=== PATIENT | female | born 1990 | race Caucasian/White ===

== ENCOUNTER 2018-05-18 09:50 | Day surgery (SDC) | payer OTHER ==
[2018-05-17 15:39] VITALS: BMI 26.5
[2018-05-18] MEDS ORDERED: Lidocaine 1% (PF) 30 ML VIAL ONE (10:46)
[2018-05-18] MEDS ORDERED: Bupivacaine 0.25% HCL 30 ML VIAL ONE (10:46)
[2018-05-18] MEDS ORDERED: ceFAZolin Sodium 2 GM/100 ML BAG ONE (11:13)
[2018-05-18 11:16] LABS: BHCG - Serum Negative (NEGATIVE); Pregs Control Background? CLEAR/WHITE (CLR/WHITE); Pregs Control Bar Appear? YES (CONTROL BAR)
[2018-05-18] MEDS ORDERED: Midazolam HCl 2 mg/2 ml Vial ONE (11:26)
[2018-05-18] MEDS ORDERED: Fentanyl 100 MCG/2 ML VIAL ONE (11:52)
[2018-05-18] MEDS ORDERED: diphenhydrAMINE 50 MG/ML VIAL ONE (11:54)
[2018-05-18] MEDS ORDERED: PHENYLEPHRINE-NS 100 MCG/ML 10 ML SYRINGE ONE (11:54)
[2018-05-18] MEDS ORDERED: Ondansetron PF 4 MG/2 ML Vial ONE (11:54)
[2018-05-18] MEDS ORDERED: Lidocaine 1% PF 5 ML VIAL ONE (11:54)
[2018-05-18] MEDS ORDERED: PROPOFOL 200 MG/20 ML VIAL ONE (11:54)
[2018-05-18] MEDS ORDERED: Ketorolac Tromethamine 30 MG/ML VIAL ONE (11:54)
[2018-05-18] MEDS ORDERED: Dexamethasone 20 MG/5 ML VIAL ONE (11:54)
[2018-05-18] MEDS ORDERED: HYDROcodone/Acetaminophen 5/325 mg Tablet ONE (14:32)
--- NOTE | 2018-05-18 21:37 | OP ---
DATE OF PROCEDURE: 05/18/2018 INDICATIONS FOR PROCEDURE: The patient is a 27-year-old female who I saw in my clinic earlier this week for the first time after she suffered an injury to her left hand last Thursday. She states that she fell onto the left hand. She was seen at local ER, at [facility] and x-rays were taken revealing a fracture of the left fifth metacarpal. She presented into my clinic in a non-removable splint and she had x-rays that she was not able to bring in with her, but x-rays were taken in my clinic showing a displaced angulated left fifth metacarpal neck fracture, and clinically it appears that she had some rotational deformity to the left small finger in relation to the neighboring ring finer. She was guarded, so I had difficulty assessing the degree of rotation; however, it did appear that her flexor and extension tendon functions were grossly intact. Although the exam was limited and all fingers were neurovascularly intact, and there were no open wounds or exposed bone or tendons appreciated, given the potential for rotational deformity on clinical examination and the degree of apex dorsal angulation on the x-rays, we discussed surgical and non-surgical treatment options. The patient had severe anxiety, therefore did not want any attempt at a closed reduction in the clinic and wanted surgical treatment performed in the operating room. Therefore, I discussed all risks and goals associated with surgery. The goal of surgery is to improve alignment of the fractured left fifth metacarpal neck and to hopefully optimize posttraumatic function of her hand. The risks associated with the surgery include, but are not limited to possible tendon injury, nerve injury, blood vessel injury, nonunion, malunion, chronic pain, stiffness in one or more fingers, need for further surgery, hardware failure, etc. She voiced understanding and agreed to proceed with a closed reduction and percutaneous pinning, possible open reduction and internal fixation for treatment of left fifth metacarpal neck fracture. DESCRIPTION OF PROCEDURE: The patient was seen on the day of her surgery in the holding area. All risks and goals again were discussed by me with the patient. The patient was dosed with preoperative antibiotics and then transported to the operating room and placed supine on the operating room table. A time-out was performed. General anesthesia was induced by the anesthesia team. A left upper extremity tourniquet was applied. The left upper extremity was then prepped and draped under sterile aseptic condition. A second time-out was performed. I was able to reduce the fracture rather easily, and I used fluoroscopic imaging to confirm in multiple planes of view acceptable alignment of the fracture. I used a 0.045 K-wire and advanced it retrogradely from distal to proximal, across the distal and proximal fragments, and I was able to get a nice reduction which was stable and then the pin was advanced obliquely across the distal and proximal fracture fragments and this was done from an ulnar to radial direction. A second 0.045 K-wire was advanced from radial to ulnar and the pins were placed transverse to each other and oblique across the fracture fragments. Completion films were taken, acceptable alignment of the fracture was achieved, acceptable alignment of the hardware was achieved and noted. I was able to tenodese at the wrist and there were no clinical signs of rotational deformity of the small finger in relation to the ring finger. There was no digital overlap or crossover. Both pins were bent and cut and then some local anesthetic was infiltrated prior to advancing the pins and also some additional local anesthetic was infiltrated in the pin sites to help with postoperative pain. Xeroform was placed around the pin sites and then a bulky dressing was applied and then small and ring fingers were secured in an ulnar gutter forearm based splint. All fingers were maintained with good vascularity throughout the entirety of the case, no tourniquet was used. The patient was extubated and then transported back to the recovery area in stable condition. The patient will be seen back in the hand clinic around postoperative day #8 to 10 for repeat x-rays out of the splint. She will be seen by the occupational hand therapist around postoperative day #3 to 4 for fitting of a custom-molded ulnar gutter splint to help with pin care. She was discharged home and given a prescription for Cantril 5/325 one to two tablets q.6 hours p.o. p.r.n. pain, 30 pills were given. PREOPERATIVE DIAGNOSIS: Left hand fifth metacarpal neck fracture with rotational deformity and apex dorsal angulation. POSTOPERATIVE DIAGNOSIS: Left hand fifth metacarpal neck fracture with rotational deformity and apex dorsal angulation. PROCEDURE PERFORMED: Closed reduction and percutaneous pinning for treatment of left hand fifth metacarpal neck fracture which was two-part and extra-articular with displacement. CYLINDER GRINDER: Please see operative record. ANESTHESIA: General and local anesthetic. TOURNIQUET TIME: New tourniquet used. ESTIMATED BLOOD LOSS: Less than 5 mL. FINDINGS: Closed left fifth metacarpal neck fracture which was easily reducible and stabilized with two 0.045 K-wired pins. IMPLANTS: Two 0.045 K-wires. CONDITION: Stable. Job ID: [id number]
== END 2018-05-18 15:25 | disposition home or self-care (01) ==
LOC: SDC 09:50
PROVIDERS: ATTEND Surgery Surgery of the Hand
PROC: 0PSQ04Z Reposition Left Metacarpal with Internal Fixation Device, Open Approach (ICD-10-PCS; principal; 2018-05-18)
DX: S62.337A Displaced fracture of neck of fifth metacarpal bone, left hand, initial encounter for closed fracture (principal); F17.210 Nicotine dependence, cigarettes, uncomplicated; F41.9 Anxiety disorder, unspecified; Z79.899 Other long term (current) drug therapy; Z91.040 Latex allergy status; W19.XXXA Unspecified fall, initial encounter
CPT/HCPCS: 76000; 84703; J0690; J1100; J1200; J1885; J2001; J2250; J2405; J2704; J3010; S0020